=== PATIENT | male | born 1935 | race Caucasian/White ===

== ENCOUNTER → 2020-03-09 | Outpatient (CLI) | payer BC, MEDICARE ==
--- NOTE | 2020-03-09 07:54 | MR ---
EXAMINATION TYPE: MR brain wo con DATE OF EXAM: 03/09/2020 COMPARISON: NONE HISTORY: Dizziness TECHNIQUE: Multiplanar, multisequence imaging of the brain and brainstem is performed without IV cont rast. FINDINGS: Diffusion weighted images demonstrate no evidence of a recent infarct or other diffusion abnormality. There is no worrisome extra-axial fluid collection. Mild to moderate diffuse ventricular and sulcal p rominence. Scattered foci of T2 hyperintensity are seen throughout the white matter bilaterally. Appr oximately 20-25 small scattered lesions. Midline structures demonstrate normal morphology. The craniocervical junction appears within normal limits. Normal vascular flow voids are present. Mild mucosal thickening involving ethmoid and maxilla ry sinuses bilaterally. The globes are intact. No minimal fluid signal left mastoid air cells. IMPRESSION: Mild to moderate diffuse cerebral atrophy and chronic small vessel ischemic change. Possi ble mild left-sided mastoiditis, correlate clinically.
== END | disposition home or self-care (01) ==
LOC: RADMRIMAIN 06:32
PROVIDERS: ATTEND Internal Medicine
DX: G31.1 Senile degeneration of brain, not elsewhere classified (principal); I67.82 Cerebral ischemia
CPT/HCPCS: 70551